=== PATIENT | male | born 1980 | race Caucasian/White ===

== ENCOUNTER 2016-10-16 14:00 | Emergency (ER) | payer OTHER, BC ==
[2016-10-16 14:03] VITALS: BP 159/88; BMI 37.5
[2016-10-16] MEDS ORDERED: TORADOL 60 MG VIAL IM ONE (14:29)
[2016-10-16] MEDS ORDERED: NORFLEX INJ IM ONE (14:29)
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
[2016-10-16] MEDS ORDERED: NORFLEX INJ ONE (15:11)
[2016-10-16] MEDS ORDERED: TORADOL 60 MG VIAL ONE (15:11)
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
== END 2016-10-16 16:21 | disposition home or self-care (01) ==
LOC: ER 14:00
DX: S83.91XA Sprain of unspecified site of right knee, initial encounter (principal); S39.012A Strain of muscle, fascia and tendon of lower back, initial encounter; M79.644 Pain in right finger(s); V89.2XXS Person injured in unspecified motor-vehicle accident, traffic, sequela
CPT/HCPCS: 73130; 99282; 99283; J1885; J2360